=== PATIENT | male | born 1995 | race Two or more races ===

== ENCOUNTER 2020-04-15 02:53 | Emergency (ER) | payer MEDICAID ==
[~2020-04-15] VITALS: Ht 185.4 cm; Wt 113.6 kg
[~2020-04-15 02:53] MED LIST: DOCU-28 PO; OXYC-149 PO
--- NOTE | 2020-04-15 03:04 | NUR ---
contacted poison control - they reccommend supportive care, intubation if needed due to respiratory depression. Banana bag for intoxication. Labs, CBC, CMP, ASA, APAP and they will call back in 2 hrs to recheck. minimum obs for 6 hrs.
[2020-04-15] MEDS ORDERED: ondansetron/PF 4mg/2ml inj IV ONE (03:05)
--- NOTE | 2020-04-15 03:05 | NUR ---
PT BROTHER DRE: [phone]
--- NOTE | 2020-04-15 03:08 | NUR ---
PT CURTIS: [phone]
--- NOTE | 2020-04-15 03:10 | NUR ---
He tried to get out of bed, he keeps focusing on the larriman helper, Roderick. 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 Roderick is able to calm the patient and offer him reassurance. Roderick was able to get him to lay back down. 2 warmed blankets were applied to the pt and lights off but the pt keep hollaring for Roderick.
--- NOTE | 2020-04-15 03:16 | NUR ---
Victoriano: [id number] phone number [phone]. She called for me to tell him that they love him and that they will be available to pick him up when he is discharged.
[2020-04-15 03:19] LABS: BASOPHILS # (AUTO) 0.1 X10'3 (0-0.2); BASOPHILS % (AUTO) 1.4 % (0-1); EOSINOPHILS # (AUTO) 0.2 X10'3 (0-0.9); HEMATOCRIT 50.1 % (42.0-52.0); HEMOGLOBIN 17.2 g/dl (14.0-17.9); LYMPHOCYTES % (AUTO) 38.8 % (21-51); MEAN CORPUSCULAR HEMOGLOBIN 31.1 PG (27.0-31.0); MEAN CORPUSCULAR HGB CONC 34.3 g/dL (33.0-36.5); MEAN CORPUSCULAR VOLUME 90.6 FL (78-98); MEAN PLATELET VOLUME 7.4 FL (7.4-10.4); MONOCYTES # (AUTO) 0.9 X10'3 (0-0.9); MONOCYTES % (AUTO) 8.9 % (2-12); NEUTROPHILS % (AUTO) 48.9 % (42-75); PLATELET COUNT 227 X10'3 (140-440); RED BLOOD COUNT 5.53 X10'6 (4.70-6.10); RED CELL DISTRIBUTION WIDTH 13.8 % (11.5-14.5); WHITE BLOOD COUNT 10.3 X10'3 (4.5-11.0)
--- NOTE | 2020-04-15 03:20 | NUR ---
He wants to get up to the BR and he is not stable to go to the BR. He doesn't want to use the urinal. Informed him that he must and there is no discussion about it.
[2020-04-15 03:30] LABS: ALANINE AMINOTRANSFERASE 49 U/L (12-78); ALBUMIN 3.9 G/DL (3.4-5.0); ALBUMIN/GLOBULIN RATIO 1.1 (1.1-1.5); ALKALINE PHOSPHATASE 47 IU/L (46-116); ANION GAP 9 (8-16); ASPARTATE AMINO TRANSFERASE 25 U/L (10-37); BILIRUBIN,TOTAL 0.2 MG/DL (0.1-1.0); BLOOD UREA NITROGEN 14 MG/DL (7-18); BUN/CREATININE RATIO 12.7 (5.4-32.0); CALCIUM 8.5 MG/DL (8.5-10.1); CHLORIDE 105 MMOL/L (99-107); GLUCOSE 112 MG/DL (70-104); POTASSIUM 3.1 MMOL/L (3.5-5.1); SODIUM 142 MMOL/L (135-145); TOTAL CARBON DIOXIDE 28.2 MMOL/L (24-32); TOTAL PROTEIN 7.4 G/DL (6.4-8.2); eGFR 84 ML/MIN
[2020-04-15 03:40] LABS: ETHANOL 0.226 GM/DL (0.0-0.010)
[2020-04-15] MEDS ORDERED: diphenhydrAMINE 50 mg/ml inj IV ONE (03:40)
[2020-04-15] MEDS ORDERED: haloperidol lactate 5mg/ml inj IM ONE (03:40)
[2020-04-15 03:41] LABS: ACETAMINOPHEN < 2.0 UG/ML (10-30)
[2020-04-15 03:42] LABS: URINE AMPHETAMINE SCREEN NEGATIVE (Neg); URINE BARBITUATE SCREEN NEGATIVE (Neg); URINE BENZODIAZEPINES SCREEN POSITIVE (Neg); URINE CANNABINOID SCREEN POSITIVE (Neg); URINE COCAINE SCREEN NEGATIVE (Neg); URINE METHADONE SCREEN NEGATIVE (Neg); URINE OPIATE SCREEN NEGATIVE (Neg); URINE PHENCYCLIDINE SCREEN NEGATIVE (Neg)
[2020-04-15] MEDS ORDERED: potassium Cl 20 mEq SR tablet PO STA ×2 (03:44→09:53)
[2020-04-15 03:50] LABS: CLARITY,URINE CLEAR (Clear); COLOR,URINE STRAW (Yellow); GLUCOSE, URINE NEGATIVE (Neg); KETONES,URINE NEGATIVE (Neg); LEUKOCYTE ESTERASE ,URINE NEGATIVE (Neg); NITRITES, URINE NEGATIVE (Neg); OCCULT BLOOD,URINE NEGATIVE (Neg); PROTEIN,URINE NEGATIVE (Neg); UROBILINOGEN,URINE 0.2 E.U/dL (0.2-1.0)
[2020-04-15 03:51] LABS: UA COLLECTION TYPE CLN CATCH MIDSTREAM
--- NOTE | 2020-04-15 04:44 | NUR ---
I WENT TO CHECK PT VITAL SIGNS, O2 PROBE WAS OFF PT FINGER DUE TO PREVIOUS COMBATIVENESS WITH STAFF AND NONCOMPLIANCE. PT HAD FALLEN ASLEEP AND WAS SNORING. UPON O2 PROBE PLACEMENT, O2 LEVEL READ 75%. HEAD TILT CHIN LIFT APPLIED AND 8LITERS O2 VIA MASK WAS PLACED ON PT. O2 NOW READING 98%. [facility] MADE AWARE AND WILL CONTINUE TO MONITOR PT.
--- NOTE | 2020-04-15 06:30 | NUR ---
PT RESTLESS BUT SLEEPING WITH SIMPLE MASK ON. VSS. REPEAT EKG DONE.
--- NOTE | 2020-04-15 08:05 | NUR ---
NO CHANGE, REMAINS SLEEPING IN POC. WEANING DOWN OFF O2. VSS.
--- NOTE | 2020-04-15 08:17 | NUR ---
spoke with [facility] and updated vs. just supportive care at this time.
--- NOTE | 2020-04-15 08:55 | NUR ---
CALLED TO HELP PT WHILE HE GETTING OUT OF BED. PT REFUSING TO LAY BACK IN BED SAYING " HAVE TO PEE", PT UNSTEADY ON FEET AND GIVEN URINAL. pt STATED "IM NOT A FUCKING CHILF IM NOT PEEING IN THAT." EXPLAINED THAT HE IS TO UNSTEADY TO USE BATHROOM. PT ATTEMPTED TO USE URINAL AND WHEN I ATTEMPTED TO STEADY HIM PT STATED "DO NOT FUCKING TOUCH ME" WITH AN AGGRESSIVE POSTURE. SECURITY NOTIFIED AND BROUGHT TO ROOM. PT URINATED 1/2 IN URINAL AND 1/2 ON FLOOR. PT WAS ABLE TO GET BACK IN BED WITHOUT ASSISTANCE. GIVEN BLANKET. LIGHTS DIMMED AND PT FELL BACK ASLEEP. WILL CONTINUE TO MONITOR.
--- NOTE | 2020-04-15 09:00 | NUR ---
PT OFF O2 NOW, MORE ALERT, MAINTAINING SAO2 97% R/A.
--- NOTE | 2020-04-15 09:14 | NUR ---
PT REUSED K-DUR, WILL ATTEMPT TO GIVE WHEN PT IS MORE CALM
--- NOTE | 2020-04-15 10:34 | NUR ---
PT MEDICALLY CLEARED FOR OF AND MOVED, REMAINS CALM. SL LEFT IN PLACE FOR NOW.
--- NOTE | 2020-04-15 11:12 | NUR ---
recieved pt. from main ED. Pt. coaxed into putting on green scrubs. using phone to call .
[2020-04-15] MEDS ORDERED: nicotine 14mg patch - 24hr TD ONE (11:50)
--- NOTE | 2020-04-15 12:35 | NUR ---
Pt given K+ and nicotine patch, vomited shortly after. now states he is ok. continues to ask if he can go outside, stated he was going to walk out. security called to reinforce that he needs to stay put. Currently laying with eyes closed
--- NOTE | 2020-04-15 13:13 | NUR ---
Pt. found pulling out his IV. stated "it was hurting my arm" catheter intact.
--- NOTE | 2020-04-15 14:39 | NUR ---
PACKET FAXED TO [facility]
--- NOTE | 2020-04-15 15:33 | NUR ---
pt woke up to use the bathroom aand to be evaluated by [facility]. Pt used restroom and then continue to ask for the phone to call his and if she could bring him food and personal belongings, he was told that he can call his but she cannot bring in any personal belongings. He then asked to go outside to smoke and we explained that he cannot leave right now because hes on a mentalhealth hold. He continued to ask for food and drinks and when offered them said "no never mind".
[2020-04-15 17:39] VITALS: BP 137/98
== END 2020-04-15 17:58 | disposition home or self-care (01) ==
LOC: ER 02:53
DX: T14.91XA Suicide attempt, initial encounter (principal); E87.6 Hypokalemia; F10.129 Alcohol abuse with intoxication, unspecified; F12.90 Cannabis use, unspecified, uncomplicated; J45.909 Unspecified asthma, uncomplicated; Z79.899 Other long term (current) drug therapy; Y90.0 Blood alcohol level of less than 20 mg/100 ml
CPT/HCPCS: 36415; 80053; 80305; 80320; 80329; 81003; 84443; 85025; 93005; 96374; 96375; 99285; J1200; J2405; 99284

== ENCOUNTER 2021-02-25 05:04 | Emergency (ER) | payer MEDICAID, OTHER ==
[~2021-02-25] VITALS: Ht 170.2 cm; Wt 118.2 kg
[2021-02-25] MEDS ORDERED: normal saline 1000ml 1,000 ML IV ONE ×2 (05:30→09:10)
[2021-02-25] MEDS ORDERED: HYDROcodone/acetaminophen 5mg/325mg tablet PO ONE (06:05)
[2021-02-25 06:16] LABS: BASOPHILS # (AUTO) 0.1 X10'3 (0-0.2); BASOPHILS % (AUTO) 0.5 % (0-1); EOSINOPHILS # (AUTO) 0.1 X10'3 (0-0.9); EOSINOPHILS % (AUTO) 0.8 % (0-6); HEMATOCRIT 47.1 % (42.0-52.0); HEMOGLOBIN 16.4 g/dl (14.0-17.9); LYMPHOCYTES # (AUTO) 2.9 X10'3 (1.1-4.8); LYMPHOCYTES % (AUTO) 26.4 % (21-51); MEAN CORPUSCULAR HEMOGLOBIN 31.9 PG (27.0-31.0); MEAN CORPUSCULAR HGB CONC 34.9 g/dL (33.0-36.5); MEAN CORPUSCULAR VOLUME 91.5 FL (78-98); MEAN PLATELET VOLUME 7.3 FL (7.4-10.4); MONOCYTES # (AUTO) 0.9 X10'3 (0-0.9); MONOCYTES % (AUTO) 7.9 % (2-12); NEUTROPHILS % (AUTO) 64.4 % (42-75); PLATELET COUNT 242 X10'3 (140-440); RED BLOOD COUNT 5.15 X10'6 (4.70-6.10); RED CELL DISTRIBUTION WIDTH 14.6 % (11.5-14.5); WHITE BLOOD COUNT 10.9 X10'3 (4.5-11.0)
[2021-02-25 06:39] LABS: ALBUMIN 3.8 G/DL (3.4-5.0); ANION GAP 18 (8-16); BLOOD UREA NITROGEN 19 MG/DL (7-18); BUN/CREATININE RATIO 20.7 (5.4-32.0); CALCIUM 8.2 MG/DL (8.5-10.1); CHLORIDE 106 MMOL/L (99-107); CREATININE 0.92 MG/DL (0.60-1.10); SODIUM 142 MMOL/L (135-145); eGFR > 90 ML/MIN
[2021-02-25 06:41] LABS: GLUCOSE 106 MG/DL (70-104); POTASSIUM 3.5 MMOL/L (3.5-5.1)
[2021-02-25] MEDS ORDERED: oxyCODONE/APAP 5-325mg tablet PO ONE (08:05)
--- NOTE | 2021-02-25 08:30 | NUR ---
Pt continues to ask for cigarette, Pt informs nurse that he pays king money and has million in his bank. 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
--- NOTE | 2021-02-25 08:37 | NUR ---
Pt asking for cigarette, states he has been here all morning and we are just waiting. Pt states that he wants to leave if he doesnt get to smoke.
--- NOTE | 2021-02-25 09:01 | NUR ---
Pr Dr Uribe, PIV in left hand DC ed and RN wathced Pt ambulate with out assistance outside the bay doors of ED to smoke a cigarette. Pt was on phone. in line of sight of RN and was returned to his ED room after he finished his first cigarette and started to smoke a second cigarette. RN redirected him to bed before he smoked second cigarette. Pt ambulated with out assistance, steady gait, but when Pt entered the ED bay doors, Pt started a small limp.
[2021-02-25] MEDS ORDERED: ondansetron/PF 4mg/2ml inj IV ONE (09:10)
[2021-02-25] MEDS ORDERED: morphine 4 MG/ML inj SYRINge IV ONE (09:10)
[2021-02-25] MEDS ORDERED: normal saline 1000ML IV soln IVB ONE (09:10)
--- NOTE | 2021-02-25 09:15 | NUR ---
Dr Uribe speaks to Pt, explains current plan of care. Pt agrees.
[2021-02-25 09:58] LABS: ETHANOL 0.039 GM/DL (0.0-0.010)
[2021-02-25 10:19] VITALS: BP 160/103
[2021-02-25 11:13] LABS: URINE AMPHETAMINE SCREEN NEGATIVE (Neg); URINE BARBITUATE SCREEN NEGATIVE (Neg); URINE BENZODIAZEPINES SCREEN NEGATIVE (Neg); URINE CANNABINOID SCREEN NEGATIVE (Neg); URINE COCAINE SCREEN NEGATIVE (Neg); URINE METHADONE SCREEN NEGATIVE (Neg); URINE OPIATE SCREEN POSITIVE (Neg); URINE PHENCYCLIDINE SCREEN NEGATIVE (Neg)
--- NOTE | 2021-02-25 11:25 | NUR ---
Pt requesting to smoke cigarette before surgery. RN informs Pt that the plan of care is not known at this time due to CT scan not resulted. Pt has been becoming incresinginly aggitated due to being told that he cannot go outside to smoke a cigarette while he waits for surgey. Pt has receved Emden 10/325, Percocet 5/325, and 4 mg IV morphine. RN informed Pt that there is a medical concern for Pt safety with all those narcotice in his system, and that his judgment seems to be inpaired. Pt continues to claim that he knows so many doctors here at [facility] because he pays them king anytime that he comes to the hospital. Pt has ambulated with out assistance since his time in ED.
--- NOTE | 2021-02-25 11:27 | NUR ---
Pt ambulated to bathroom and back with out assistance.
--- NOTE | 2021-02-25 11:43 | NUR ---
Pt asking again to smoke a cigarette or else he wants to leave gifty bennie can take better care of him. Pt now stating that he has been treated like "shit" since he got here. Pt states that he wants to leave. RN attemtps to keep Pt calm and wait for test results.
[2021-02-25] MEDS ORDERED: ONDA4TAB6 PO (12:12)
[2021-02-25] MEDS ORDERED: OXYC-145 PO (12:12)
== END 2021-02-25 12:39 | disposition home or self-care (01) ==
LOC: ER 05:05
DX: S61.411A Laceration without foreign body of right hand, initial encounter (principal); S61.431A Puncture wound without foreign body of right hand, initial encounter; F10.129 Alcohol abuse with intoxication, unspecified; R06.02 Shortness of breath; J45.909 Unspecified asthma, uncomplicated; F12.90 Cannabis use, unspecified, uncomplicated; Z98.890 Other specified postprocedural states; Z79.899 Other long term (current) drug therapy; W19.XXXA Unspecified fall, initial encounter; Y93.89 Activity, other specified; Y92.89 Other specified places as the place of occurrence of the external cause; Y99.8 Other external cause status; Y90.9 Presence of alcohol in blood, level not specified
CPT/HCPCS: 36415; 71045; 72192; 73130; 73502; 80048; 80305; 80320; 85025; 93005; 96361; 96374; 96375; 99285; J2270; J2405; J7030